=== PATIENT | male | born 1955 | race African-American/Black ===

== ENCOUNTER 2018-03-14 14:02 | Emergency (ER) | payer BC, MEDICARE ==
[~2018-03-14] VITALS: Ht 190.5 cm; Wt 74.8 kg
--- NOTE | 2018-03-14 16:11 | RAD ---
Indication: Constipation for 3 days. TECHNIQUE: Single AP view of the abdomen and pelvis COMPARISON: None FINDINGS: Visualized lung bases are clear. No pneumoperitoneum. No abnormally dilated bowel loops. Moderate diffuse colonic and rectal stool burden. Mild multilevel degenerative disc disease is seen in the spine. Mild bilateral hip joint osteoarthritis. IMPRESSION: Moderate diffuse colonic stool burden. No radiographic evidence of bowel obstruction. Electronically signed by: Salty Pacheco DO (03/14/2018 4:07 PM) [facility]
[2018-03-14] MEDS ORDERED: MAGN296S9 PO (16:39)
--- NOTE | 2018-03-14 16:40 | PHYS DOC ---
Adult General Chief Complaint Chief Complaint: CONSTIPATION HPI HPI Patient is a 62 year old male who presents with states no bowel movement 2 days. Patient states he took mag citrate 2 days ago without results. Patient denies nausea, vomiting, abdominal pain, dysuria, fever. Rates his pain a 0-10. Patient has no known drug allergies and states he takes no medications daily, has had no surgeries, has no medical history. Review of Systems Review of Systems Constitutional: Denies fever or chills [] Respiratory: Denies cough or shortness of breath [] Cardiovascular: No additional information not addressed in HPI [] GI: Constipation. Denies abdominal pain, nausea, vomiting, bloody stools or diarrhea [] : Denies dysuria or hematuria [] All other systems were reviewed and found to be within normal limits, except as documented in this note. Physical Exam Physical Exam Constitutional: Well developed, well nourished, no acute distress, non-toxic appearance. [] HENT: Normocephalic, atraumatic, bilateral external ears normal, oropharynx moist, no oral exudates, nose normal. [] Eyes: PERRLA, EOMI, conjunctiva normal, no discharge. [] Neck: Normal range of motion, no tenderness, supple, no stridor. [] Cardiovascular:Heart rate regular rhythm, no murmur [] Lungs & Thorax: Bilateral breath sounds clear to auscultation [] Abdomen: Bowel sounds normal, soft, no tenderness, no masses, no pulsatile masses. [] Skin: Warm, dry, no erythema, no rash. [] Back: No tenderness, no CVA tenderness. [] Extremities: No tenderness, no cyanosis, no clubbing, ROM intact, no edema. [] Neurologic: Alert and oriented X 3, normal motor function, normal sensory function, no focal deficits noted. [] Psychologic: Affect normal, judgement normal, mood normal. [] Current Patient Data Vital Signs Vital Signs Date Time Temp Pulse Resp B/P (MAP) Pulse Ox O2 Delivery O2 Flow Rate FiO2 03/14/18 18:37 82 16 120/89 (99) 97 Room Air 03/14/18 15:20 98.8 98.8 Lab Values Laboratory Tests Test 03/14/18 17:58 Urine Collection Type Unknown Urine Color Yellow Urine Clarity Clear Urine pH 6.5 Urine Specific Hume 1.020 Urine Protein Negative mg/dL (NEG-TRACE) Urine Glucose (UA) Negative mg/dL (NEG) Urine Ketones (Stick) Negative mg/dL (NEG) Urine Blood Negative (NEG) Urine Nitrite Positive (NEG) Urine Bilirubin Negative (NEG) Urine Urobilinogen Dipstick 1.0 mg/dL (0.2 mg/dL) Urine Leukocyte Esterase Moderate (NEG) Urine RBC 0 /HPF (0-2) Urine WBC >40 /HPF (0-4) Urine Squamous Epithelial Cells Occ /LPF Urine Bacteria Many /HPF (0-FEW) Urine Mucus Mod /LPF EKG EKG [] Radiology/Procedures Radiology/Procedures [] Impressions: [facility] [address] [place] [address] IMAGING REPORT Signed PATIENT: BETY AHUJA ACCOUNT: [id number] : 1955 LOCATION: ER AGE: 62 SEX: M EXAM STATUS: REG ER ORD. PHYSICIAN: FERNANDEZ ANDREW APRN REASON: constipation PROCEDURE: KUB Indication: Constipation for 3 days. TECHNIQUE: Single AP view of the abdomen and pelvis COMPARISON: None FINDINGS: Visualized lung bases are clear. No pneumoperitoneum. No abnormally dilated bowel loops. Moderate diffuse colonic and rectal stool burden. Mild multilevel degenerative disc disease is seen in the spine. Mild bilateral hip joint osteoarthritis. IMPRESSION: Moderate diffuse colonic stool burden. No radiographic evidence of bowel obstruction. Electronically signed by: Salty Diamond DO (03/14/2018 4:07 PM) [facility] DICTATED and SIGNED BY: SALTY DIAMOND DO DATE: 03/14/18 1606 Course & Med Decision Making Course & Med Decision Making Patient is a 62 year old male who presents with states no bowel movement 2 days. Patient states he took mag citrate 2 days ago without results. Patient denies nausea, vomiting, abdominal pain, dysuria, fever. Rates his pain a 0-10. Patient has no known drug allergies and states he takes no medications daily, has had no surgeries, has no medical history. Alert and oriented. Skin pink warm and dry. Abdomen soft and nontender and nondistended. Abdominal KUB shows Moderate diffuse colonic stool burden. No radiographic evidence of bowel obstruction. Lungs are clear to auscultation in all lobes. Heart rate regular without murmur area afebrile. Patient is given a soapsuds enema and patient states he had very good results and feels a lot better. Patient's urine also shows infection with nitrites. Patient is given prescription for mag citrate if he should need it and antibiotic for his UTI. Patient follow-up with his primary care if not getting any better. Dragon Disclaimer Dragon Disclaimer This electronic medical record was generated, in whole or in part, using a voice recognition dictation system. Departure Departure Impression: Primary Impression: Constipation Additional Impression: UTI (urinary tract infection) Disposition: HOME, SELF-CARE Condition: STABLE Referrals: NO PCP (PCP) Patient Instructions: Constipation, Adult, Urinary Tract Infection Additional Instructions: Try taking Colace stool softener every day. Follow up with your primary care physician. Scripts Cephalexin (KEFLEX) 500 Mg Capsule 1 CAP PO BID, #14 CAP Prov: FERNANDEZ ANDREW APRN 03/14/18 Magnesium Citrate (MAGNESIUM CITRATE) 296 Ml Solution 296 ML PO ONCE, #296 ML Prov: FERNANDEZ ANDREW APRN 03/14/18 Problem Qualifiers Primary Impression: Constipation Constipation type: unspecified constipation type Qualified Codes: K59.00 - Constipation, unspecified Additional Impression: UTI (urinary tract infection) Urinary tract infection type: site unspecified Hematuria presence: without hematuria Qualified Codes: N39.0 - Urinary tract infection, site not specified FERNANDEZ ANDREW APRN Mar 14, 2018 16:39
[2018-03-14 18:07] LABS: BILIRUBIN,URINE NEGATIVE (NEG); CLARITY,URINE CLEAR; COLOR,URINE YELLOW; NITRITE,URINE POSITIVE (NEG); PH,URINE 6.5; PROTEIN,URINE NEGATIVE (NEG-TRACE)
[2018-03-14 18:15] LABS: BACTERIA,URINE MANY /HPF (0-FEW); RBC,URINE 0 /HPF (0-2); SQUAMOUS EPITHELIAL CELL,UR OCC /LPF; WBC,URINE >40 /HPF (0-4)
[2018-03-14 18:37] VITALS: BP 120/89
[2018-03-14] MEDS ORDERED: CEPH-264 PO (18:38)
== END 2018-03-14 18:46 | disposition home or self-care (01) ==
LOC: ER 14:02
DX: K59.00 Constipation, unspecified (principal); N39.0 Urinary tract infection, site not specified
CPT/HCPCS: 74018; 81001; 87086; 99284-25